=== PATIENT | male | born 1975 ===

== ENCOUNTER 2017-05-22 12:35 | Emergency (ER) | payer SELFPAY ==
[2017-05-22 12:42] VITALS: TEMP 98.1; O2SAT 98
--- NOTE | 2017-05-22 12:49 | C.PDOC ---
Time Seen by Provider: 05/22/17 12:45 Chief Complaint (Nursing): Abdominal Pain Past Medical History Vital Signs: Last Vital Signs Temp 98.1 F 05/22/17 12:41 Pulse 92 H 05/22/17 12:41 Resp 20 05/22/17 12:41 BP 176/101 H 05/22/17 12:41 Pulse Ox 98 05/22/17 12:41 - Social History Hx Alcohol Use: No Hx Substance Use: No - Immunization History Hx Tetanus Toxoid Vaccination: No Hx Influenza Vaccination: Yes Hx Pneumococcal Vaccination: No ED Course And Treatment O2 Sat by Pulse Oximetry: 98 Disposition - Disposition
[2017-05-22] MEDS ORDERED: Sodium Chloride 0.9% 1,000 ML IV STA (12:50)
[2017-05-22] MEDS ORDERED: Lidocaine 116 MG in Sodium Chloride 0.9% 100 ML IV STA (12:50)
--- NOTE | 2017-05-22 12:50 | C.PDOC ---
History Of Present Illness LIMITED DUE TO CLIN COND PER , NEW ONSET L LQ PAIN RADIATION L FLANK/L GROIN SINCE THIS MORNING. WAX WANE. +NV, DIAPH, URINARY URGENCY. NO FEVER. DENIES PRIOR HO KIDNEY STONES, PSH ROS LIMIED EXAM MOD DIST ABD MILD LLQ TEND SOFT NO R/G +DIAPH COOL REMAINDER NEG Time Seen by Provider: 05/22/17 12:45 Chief Complaint (Nursing): Abdominal Pain History Per: Patient, Family History/Exam Limitations: clinical condition Past Medical History Reviewed: Historical Data, Nursing Documentation, Vital Signs Vital Signs: Last Vital Signs Temp 98.1 F 05/22/17 12:41 Pulse 85 05/22/17 15:38 Resp 16 05/22/17 15:38 BP 162/89 H 05/22/17 15:38 Pulse Ox 98 05/22/17 15:38 Family History: States: No Known Family Hx - Social History Hx Alcohol Use: No Hx Substance Use: No - Immunization History Hx Tetanus Toxoid Vaccination: No Hx Influenza Vaccination: Yes Hx Pneumococcal Vaccination: No Review Of Systems Review Of Systems: ROS cannot be obtained secondary to pt's inabilty to answer questions. Gastrointestinal: Positive for: Nausea, Vomiting Genitourinary: Positive for: Other (URINARY URGENCY) Musculoskeletal: Positive for: Back Pain (L FLANK) Physical Exam - Physical Exam Appears: Non-toxic, No Acute Distress, Other (mod distress) Skin: Normal Color, Dry, Diaphoretic (COOL), No Rash Head: Normacephalic Eye(s): bilateral: PERRL Nose: Normal Oral Mucosa: Moist Lips: Normal Appearing Neck: Normal ROM Chest: Symmetrical Cardiovascular: Rhythm Regular, No Murmur Respiratory: Normal Breath Sounds, No Accessory Muscle Use Gastrointestinal/Abdominal: Soft, Tenderness (MILD LLQ ), No Guarding, No Rebound Back: No CVA Tenderness Extremity: Normal ROM, No Deformity, No Swelling Neurological/Psych: Oriented x3, Normal Speech ED Course And Treatment - Laboratory Results Result Diagrams: 05/22/17 13:19 05/22/17 13:19 O2 Sat by Pulse Oximetry: 98 (RA) Pulse Ox Interpretation: Normal Reevaluation Time: 14:58 Reassessment Condition: Improved Disposition Counseled Patient/Family Regarding: Studies Performed, Diagnosis, Need For Followup, Rx Given - Disposition Referrals: Nilo Pacheco MD [Staff Provider] - [facility] [Outside] [facility] [Outside] Disposition: HOME/ ROUTINE Disposition Time: 15:27 Condition: IMPROVED Prescriptions: Acetaminophen/Codeine [Tylenol/Codeine 300 MG/30 MG] 1 tab PO Q4H #12 tab Ibuprofen [Motrin] 600 mg PO Q6 #30 tab Ondansetron [Zofran Odt] 4 mg PO TID PRN #9 odt PRN Reason: Nausea/Vomiting Tamsulosin [Flomax] 0.4 mg PO DAILY #14 cap Instructions: Kidney Stones in Adults Forms: [employer] ([place]), Work Excuse - Clinical Impression Clinical Impression: Ureterolithiasis - Scribe Statement The provider has reviewed the documentation as recorded by the Scribe (Bernabe Pulliam) All medical record entries made by the Scribe were at my direction and personally dictated by me. I have reviewed the chart and agree that the record accurately reflects my personal performance of the history, physical exam, medical decision making, and the department course for this patient. I have also personally directed, reviewed, and agree with the discharge instructions and disposition.
[2017-05-22] MEDS ORDERED: Sodium Chloride 0.9% 1,000 ML ONE (13:07)
[2017-05-22 13:26] LABS: BASO % 0.1 % (0.0-2.0); EOS % 0.1 % (0.0-4.0); HEMOGLOBIN 16.3 g/dL (12.0-18.0); LYMPH % 8.1 % (20.0-40.0); MEAN CORPUSCULAR HGB CONC 34.2 g/dL (33.0-37.0); MEAN PLATELET VOLUME 9.6 fL (7.2-11.7); MONO # 0.3 K/uL (0.0-0.8); MONO % 2.6 % (0.0-10.0); NEUT # 10.4 K/uL (1.8-7.0); NEUT % 89.1 % (50.0-75.0); PLATELET COUNT 252 K/uL (130-400); RED CELL DISTRIBUTION WIDTH 13.5 % (11.5-14.5); WHITE BLOOD COUNT 11.7 K/uL (4.8-10.8)
[2017-05-22] MEDS ORDERED: Lidocaine 116 MG in Sodium Chloride 0.9% 100 ML IV ONE (13:30)
[2017-05-22 13:37] LABS: BLOOD UREA NITROGEN 17 mg/dL (9-20); CALCIUM 9.5 mg/dl (8.6-10.4); GFR AFRICAN-AMERICAN > 60; GFR NON-AFRICAN AMERICAN > 60
[2017-05-22 13:59] LABS: LYMPHOCYTE 4 % (20-40); MONOCYTE 3 % (0-10); NEUTROPHIL 93 % (50-75); TOTAL CELLS COUNTED 100
[2017-05-22 14:00] LABS: PLATELET ESTIMATE NORMAL (NORMAL)
--- NOTE | 2017-05-22 14:01 | CT ---
PROCEDURE: CT Abdomen and Pelvis without Oral or IV contrast. HISTORY: L GROIN/FLANK PAIN RO STONE COMPARISON: None available. TECHNIQUE: Contiguous axial images of the abdomen and pelvis. No oral or IV contrast administered. Coronal and Sagittal reformats generated and reviewed. Radiation dose: Total exam DLP = 605.48 mGy-cm. This CT exam was performed using one or more of the following dose reduction techniques: Automated exposure control, adjustment of the mA and/or kV according to patient size, and/or use of iterative reconstruction technique. FINDINGS: There is limited evaluation of the solid organs without the administration of IV contrast. LOWER THORAX: Mild bibasilar atelectasis. No visible consolidation, pleural effusion, or pneumothorax. 3 mm calcified granuloma, right lung base. LIVER: Hypoattenuation of the liver compatible with hepatic steatosis. Hepatomegaly. GALLBLADDER AND BILE DUCTS: Unremarkable unenhanced appearance. PANCREAS: Unremarkable unenhanced appearance. SPLEEN: Borderline splenomegaly. ADRENALS: Unremarkable unenhanced appearance. KIDNEYS AND URETERS: 2 mm calculus at the distal left UVJ with proximal hydroureteronephrosis. Left perinephric stranding. No right-sided hydronephrosis or obstructing calculus identified. BLADDER: See above. REPRODUCTIVE: Unremarkable. APPENDIX: The appendix appears within normal limits of caliber. No secondary signs of acute appendicitis. BOWEL: The stomach is nondistended. Lack of oral contrast limits evaluation for bowel pathology. The bowel loops appear within normal limits of caliber without evidence of intestinal obstruction. PERITONEUM: No significant free fluid. No definite free air. LYMPH NODES: No bulky lymphadenopathy identified. VASCULATURE: No aortic aneurysm. BONES: No acute osseous abnormality is detected. OTHER FINDINGS: None. IMPRESSION: 2 mm calculus at the distal left UVJ with proximal hydroureteronephrosis. Left perinephric stranding. Hypoattenuation of the liver compatible with hepatic steatosis. Hepatomegaly. Borderline splenomegaly.
[2017-05-22 14:59] LABS: SQUAMOUS EPITHIAL < 1 /hpf (0-5); URINE BILIRUBIN NEGATIVE (NEGATIVE); URINE BLOOD NEGATIVE (NEGATIVE); URINE CLARITY Clear (Clear); URINE COLOR Yellow (YELLOW); URINE GLUCOSE (UA) 3+ mg/dL (Normal); URINE LEUKOCYTE ESTERASE NEG Leu/uL (Negative); URINE PROTEIN NEGATIVE (NEGATIVE); URINE UROBILINOGEN NORMAL mg/dL (0.2-1.0)
[2017-05-22 15:39] VITALS: BP 162/89; PULSE 85; RESP 16
== END 2017-05-22 15:38 | disposition home or self-care (01) ==
LOC: C.ER 12:35
DX: N20.1 Calculus of ureter (principal)
CPT/HCPCS: 74176; 80048; 81001; 85025; 96361; 96374; 96375; 99284; J1885; J2405; J7040